=== PATIENT | male | born 1970 | race Caucasian/White ===

== ENCOUNTER 2021-08-25 11:13 | Emergency (ER) | payer SELFPAY ==
[~2021-08-25] VITALS: Ht 157.5 cm; Wt 90.9 kg
[2021-08-25 11:16] VITALS: TEMP 98.4
[2021-08-25 12:46] VITALS: BP 120/78; PULSE 88
== END 2021-08-25 12:55 | disposition home or self-care (01) ==
LOC: COL.ER 11:13
DX: S80.12XA Contusion of left lower leg, initial encounter (principal); Y08.02XA Assault by strike by baseball bat, initial encounter

== ENCOUNTER → 2021-10-16 | Emergency (ER) | payer SELFPAY ==
[~2021-10-16] VITALS: Ht 157.5 cm; Wt 90.9 kg
[2021-10-16 17:43] VITALS: BP 165/93; PULSE 80; TEMP 99.1
== END ==
LOC: COL.ER 16:53
DX: U07.1 COVID-19 (principal); F17.210 Nicotine dependence, cigarettes, uncomplicated

== ENCOUNTER → 2021-12-09 | Emergency (ER) | payer SELFPAY ==
[~2021-12-09] VITALS: Ht 160 cm; Wt 84.1 kg
[2021-12-09 15:31] VITALS: BP 131/87; PULSE 92; TEMP 98.6
[2021-12-09 16:11] LABS: COLLECTION METHOD CATHETER
[2021-12-09 16:17] LABS: PH 5 (5-8); SQUAMOUS EPITHELIAL None Seen /hpf (0-10); URINE APPEARANCE Clear (CLEAR/HAZY); URINE BACTERIA None Seen /hpf (NONE SEEN); URINE BILIRUBIN Negative (NEGATIVE); URINE BLOOD Negative (NEGATIVE); URINE COLOR Yellow (YELLOW); URINE GLUCOSE Negative (NEGATIVE); URINE KETONE Negative (NEGATIVE); URINE LEUKOCYTE ESTERASE Negative (NEGATIVE); URINE NITRATE Negative (NEGATIVE); URINE PROTEIN(semi-quant) Negative (NEGATIVE); URINE UROBILINOGEN Negative (NEGATIVE)
== END ==
LOC: COL.ER 15:23
PROVIDERS: Emergency Medicine
DX: R33.9 Retention of urine, unspecified (principal); R10.30 Lower abdominal pain, unspecified

== ENCOUNTER 2021-12-11 09:02 | Emergency (ER) | payer SELFPAY ==
[~2021-12-11] VITALS: Ht 160 cm; Wt 47.7 kg
[2021-12-11 09:09] VITALS: BP 132/84; TEMP 98.6
[2021-12-11 10:06] VITALS: PULSE 75
== END 2021-12-11 10:06 | disposition home or self-care (01) ==
LOC: COL.ER 09:02
DX: T83.098A Other mechanical complication of other urinary catheter, initial encounter (principal); F17.210 Nicotine dependence, cigarettes, uncomplicated

== ENCOUNTER 2022-01-29 09:41 | Emergency (ER) | payer SELFPAY ==
[~2022-01-29] VITALS: Ht 160 cm; Wt 72.7 kg
[2022-01-29 09:53] VITALS: TEMP 97.1
[2022-01-29 10:44] LABS: BASO # 0.1 K/mm3 (0.0-0.2); BASO % 0.7 % (0.0-2.0); EOS # 0.4 K/mm3 (0.0-0.7); EOS % 5.6 % (0.0-4.0); GRAN # 4.2 K/mm3 (1.4-6.5); GRAN % 61.1 % (42.2-75.2); HEMATOCRIT 40.8 % (42.0-52.0); HEMOGLOBIN 13.3 g/dl (13.5-18.0); LYMPH # 1.8 K/mm3 (1.2-3.4); LYMPH % 25.4 % (20.0-51.0); MEAN CELL VOLUME 80 fl (80.0-100.0); MEAN CORPUSCULAR HEMOGLOBIN 26 pg (27-31); MEAN CORPUSCULAR HGB CONC 33 g/dl (33.0-37.0); MEAN PLATELET VOLUME 10.4 fl (7.4-10.4); MONO # 0.5 K/mm3 (0.1-0.6); MONO % 6.8 % (1.7-9.3); PLATELET COUNT 287 K/mm3 (130-400); RED BLOOD COUNT 5.08 M/mm3 (4.20-5.60); REDCELL DISTRIBUTION WIDTH-CV 13.2 % (11.5-14.5)
[2022-01-29 11:02] LABS: ALBUMIN 3.8 gm/dL (3.5-5.0); BILIRUBIN,TOTAL 0.2 mg/dL (0.2-1.2); CALCIUM 8.8 mg/dL (8.4-10.2); CREATININE, serum 0.93 mg/dL (0.72-1.25); POTASSIUM 3.8 mmol/L (3.5-4.5); TOTAL PROTEIN 6.8 gm/dL (6.2-8.1)
[2022-01-29 11:16] LABS: COLLECTION METHOD CATHETER
[2022-01-29 11:23] LABS: MUCOUS Present (NOT PRESENT); PH 5 (5-8); SQUAMOUS EPITHELIAL 0-2 /hpf (0-10); URINE APPEARANCE Hazy (CLEAR/HAZY); URINE BACTERIA None Seen /hpf (NONE SEEN); URINE BILIRUBIN Negative (NEGATIVE); URINE BLOOD Negative (NEGATIVE); URINE COLOR Yellow (YELLOW); URINE GLUCOSE Negative (NEGATIVE); URINE KETONE Negative (NEGATIVE); URINE LEUKOCYTE ESTERASE Negative (NEGATIVE); URINE NITRATE Negative (NEGATIVE); URINE PROTEIN(semi-quant) Negative (NEGATIVE); URINE RBC 0-2 /hpf (0-2); URINE UROBILINOGEN Negative (NEGATIVE)
[2022-01-29] MEDS ORDERED: MIRALAX238G PO (12:12)
[2022-01-29] MEDS ORDERED: SENOKOT S 50 MG1 TAB PO (12:12)
[2022-01-29 12:21] VITALS: BP 132/75; PULSE 66
== END 2022-01-29 12:21 | disposition home or self-care (01) ==
LOC: COL.ER 09:41
PROVIDERS: Physician Assistant
DX: K59.00 Constipation, unspecified (principal); K62.5 Hemorrhage of anus and rectum; F17.210 Nicotine dependence, cigarettes, uncomplicated
CPT/HCPCS: Q9967

== ENCOUNTER 2024-03-26 11:35 | Emergency (ER) | payer OTHER ==
[~2024-03-26] VITALS: Ht 162.6 cm; Wt 81.8 kg
[~2024-03-26 11:35] MED LIST: FLOMAX 0.40.4 MG/CAP PO; MIRALAX238G PO; SENOKOT S 50 MG1 TAB PO
[2024-03-26 11:42] VITALS: TEMP 98.4
[2024-03-26 12:08] VITALS: BP 122/67; PULSE 65
== END 2024-03-26 12:08 | disposition home or self-care (01) ==
LOC: COL.ER 11:35
DX: L30.9 Dermatitis, unspecified (principal); B35.4 Tinea corporis

== ENCOUNTER 2024-05-02 12:00 | Emergency (ER) | payer OTHER ==
[~2024-05-02] VITALS: Ht 162.6 cm; Wt 81.8 kg
[2024-05-02 12:05] VITALS: TEMP 98.5
[2024-05-02 15:35] LABS: BASO # 0.1 K/mm3 (0.0-0.2); BASO % 0.6 % (0.0-2.0); EOS # 0.6 K/mm3 (0.0-0.7); EOS % 7.2 % (0.0-4.0); GRAN % 60.1 % (42.2-75.2); LYMPH # 1.9 K/mm3 (1.2-3.4); LYMPH % 23.4 % (20.0-51.0); MEAN CELL VOLUME 83 fl (80.0-100.0); MEAN CORPUSCULAR HEMOGLOBIN 27 pg (27-31); MEAN CORPUSCULAR HGB CONC 33 g/dl (33.0-37.0); MEAN PLATELET VOLUME 10.7 fl (7.4-10.4); MONO # 0.7 K/mm3 (0.1-0.6); MONO % 8.5 % (1.7-9.3); PLATELET COUNT 274 K/mm3 (130-400); RED BLOOD COUNT 4.83 M/mm3 (4.20-5.60); REDCELL DISTRIBUTION WIDTH-CV 12.9 % (11.5-14.5)
[2024-05-02 15:46] LABS: COLLECTION METHOD IN
[2024-05-02 15:51] LABS: ALBUMIN 3.9 g/dL (3.5-5.0); BILIRUBIN,TOTAL 0.5 mg/dL (0.2-1.2); CALCIUM 9.4 mg/dL (8.4-10.2); CREATININE, serum 1.15 mg/dL (0.72-1.25); POTASSIUM 3.8 mEq/L (3.5-4.5); TOTAL PROTEIN 7.2 g/dl (6.2-8.1)
[2024-05-02 15:56] LABS: URINE APPEARANCE CLEAR (CLEAR/HAZY); URINE BLOOD NEGATIVE (NEGATIVE); URINE COLOR ORANGE (YELLOW); URINE GLUCOSE NEGATIVE (NEGATIVE); URINE KETONE NEGATIVE (NEGATIVE); URINE NITRATE POSITIVE (NEGATIVE); URINE PROTEIN(semi-quant) TRACE (NEGATIVE)
[2024-05-02] MEDS ORDERED: Cefuroxime 250 MG TAB PO ONE (17:30)
[2024-05-02] MEDS ORDERED: CEFTIN 250250 MG/TAB PO (18:00)
[2024-05-02 18:17] VITALS: BP 120/77; PULSE 74
[2024-05-03] MEDS ORDERED: FLOMAX 0.40.4 MG/CAP PO (21:41)
== END 2024-05-02 18:17 | disposition home or self-care (01) ==
LOC: COL.ER 12:00
PROVIDERS: Family Medicine
DX: N39.0 Urinary tract infection, site not specified (principal); F17.200 Nicotine dependence, unspecified, uncomplicated

== ENCOUNTER 2024-05-03 20:52 | Emergency (ER) | payer SELFPAY ==
[~2024-05-03] VITALS: Ht 162.6 cm; Wt 81.8 kg
[~2024-05-03 20:52] MED LIST changes: +CEFTIN 250250 MG/TAB PO
[2024-05-03 20:56] VITALS: BP 110/59; TEMP 98.2
[2024-05-03] MEDS ORDERED: Cefuroxime 250 MG TAB PO ONE (21:30)
[2024-05-03] MEDS ORDERED: FLOMAX 0.40.4 MG/CAP PO (21:41)
[2024-05-03 22:55] VITALS: PULSE 78
== END 2024-05-03 22:56 | disposition home or self-care (01) ==
LOC: COL.ER 20:52
DX: R33.9 Retention of urine, unspecified (principal)